=== PATIENT | male | born 1945 | race Caucasian/White ===

== ENCOUNTER 2017-05-06 08:00 | Outpatient (RCR) | payer MEDICARE, OTHER ==
[~2017-05-06 08:00] MED LIST: AMLODIPINE BESY10 MG PO; AMLODIPINE BESYL5 MG PO; Acetaminophen/Hydrocodone PO; CELEBREX100 MG PO; CRESTOR PO; CRESTOR10 MG PO; DOXAZOSIN MESYLA2 MG PO; LOSARTAN-HCTZ1 EAC2 PO; LOSARTAN/HCTZ PO; METOPROLOL TART50 MG PO; XARELTO10 MG PO; ZANTAC PO
== END 2017-05-25 ==
LOC: PT 08:00
PROVIDERS: ATTEND Specialist
DX: M25.511 Pain in right shoulder (principal); M54.2 Cervicalgia; M62.81 Muscle weakness (generalized)
CPT/HCPCS: 97010 ×2; 97110 ×4; 97162; G8984; G8985

== ENCOUNTER → 2017-10-21 | Outpatient (CLI) | payer MEDICARE, OTHER ==
--- NOTE | 2017-10-21 09:30 | Diagnostic Imaging Report ---
PROCEDURE:ABDOMINAL ULTRASOUND COMPARISON:CT abdomen and pelvis with contrast 07/23/2014. INDICATIONS:ABDOMINAL PAIN/RUQ FINDINGS: Liver: 15.6 cm in length in the right midclavicular line. Normal hepatic parenchymal echogenicity. No focal mass. Main portal vein: 0.8 cm in caliber. Hepatopedal flow. Gallbladder: Surgically removed. Common Bile Duct: 0.4 cm in caliber. No echogenic filling defect. Right kidney: 11.4 cm in length. No solid or cystic mass, echogenic calculi, or hydronephrosis. Normal renal cortical echogenicity. Left kidney: 11.6 cm in length. No solid or cystic mass, echogenic calculi, or hydronephrosis. Normal renal cortical echogenicity. Spleen: 11.9 cm in length. Uniform parenchymal echotexture. Pancreas: The visualized portions of the pancreas are normal. Inferior vena cava: Patent. Aorta: Non-aneurysmal. Ascites: None. CONCLUSION: Status post cholecystectomy. Otherwise unremarkable abdominal ultrasound. Dictated by: Jase Dailey M.D. on 10/21/2017 at 9:34 Electronically approved by: Jase Dailey M.D. on 10/21/2017 at 9:34
== END ==
LOC: US 08:23
PROVIDERS: ATTEND Family Medicine
DX: R10.9 Unspecified abdominal pain (principal)
CPT/HCPCS: 76700

== ENCOUNTER → 2017-11-04 | Day surgery (SDC) | payer MEDICARE, OTHER ==
[2017-11-01 11:47] LABS: BASOPHILS # (AUTO) 0.1 (0.0-0.1); BASOPHILS % 0.7 % (0.0-1.0); EOSINOPHILS # (AUTO) 0.2 (0.0-0.4); EOSINOPHILS % 2.6 % (0.0-6.0); HEMATOCRIT 41.2 % (38.2-49.6); HEMOGLOBIN 14.4 g/dL (14.0-18.0); LYMPHOCYTES % 13.7 % (18.0-39.1); MEAN CORPUSCULAR HEMOGLOBIN 31.7 pg (28-32); MEAN CORPUSCULAR VOLUME 90.7 fL (81-99); MONOCYTES # (AUTO) 0.6 (0.2-0.8); MONOCYTES % 8.3 % (4.4-11.3); NEUTROPHILS # (AUTO) 5.1 (2.1-6.9); NEUTROPHILS % 73.5 % (38.7-80.0); PLATELET COUNT 189 x10e3/uL (140-360); RED BLOOD COUNT 4.54 x10e6/uL (4.3-5.7); RED CELL DISTRIBUTION WIDTH 13.5 % (11.7-14.4)
[~2017-11-04] MED LIST changes: +FENTANYL CITRATE/PF 100MCG/2 ML INJ ONE; +FLECAINIDE ACET50 MG PO; +FUROSEMIDE20 MG PO; +HYOSCYAMINE SULFATE 0.5 MG/ML AMP ONE; +LOSARTAN POTAS100 MG PO; +MIDAZOLAM HCL 2 MG/2 ML VIAL ONE; +OMEPRAZOLE40 MG PO; +PROPOFOL IV EMULSION 10 MG/ML 50 ML VIAL ONE; +[UNRECOGNIZED DRUG - OTHER] PO
--- NOTE | 2017-11-04 16:35 | Operative Report ---
DATE OF PROCEDURE: November 04, 2017 REFERRING PHYSICIAN: Dr. Mack Peterson. PROCEDURE PERFORMED: Esophagogastroduodenoscopy with biopsies and a colonoscopy with polypectomy. INDICATIONS FOR ESOPHAGOGASTRODUODENOSCOPY: Dyspepsia. INDICATIONS FOR COLONOSCOPY: Colorectal cancer screening, personal history of colon polyps. MEDICATION: Patient was done under MAC. Please see anesthesiologist's note. PROCEDURE: With patient in the left lateral decubitus position, flexible fiberoptic Olympus gastroscope was introduced into the esophagus under direct visualization without any difficulty. There was some patchy erythema noted in distal esophagus. Minute tongues of velvety red mucosa were noted to extend proximally from the GE junction and biopsies were obtained to rule out Orellana's. The scope was then advanced with ease into the stomach and mucosa overlying the antrum and the body revealed some patchy erythema and mild to moderate edema and biopsies were obtained and sent to stain for H. pylori. Approximately 5 mm submucosal nodule was noted in the mid body greater curvature and that was biopsied. Pylorus appeared to be of normal contour and shape. Was intubated with ease and the scope was advanced all the way to the 2nd portion of the duodenum. The scope was then withdrawn slowly. Mucosa overlying the proximal 2nd portion and the duodenal bulb appeared to be within normal limits. The scope was then withdrawn back into the stomach and retroflexed and mucosa overlying the fundus and the cardia appeared to be within normal limits. The scope was then straightened out. The stomach was decompressed. Scope was subsequently withdrawn. Patient tolerated the procedure well. IMPRESSION: 1. Rule out Orellana's esophagus. 2. Gastritis biopsied. Biopsy sent to stain for H. pylori. 3. Approximately 5 mm submucosal nodule mid body greater curvature, biopsied. PLAN: Follow up histology. Continue omeprazole 40 mg 1 p.o. q.a.m. a.c. PROCEDURE: Patient was then turned around and after adequate lubrication of the anal canal a flexible fiberoptic Olympus colonoscope was inserted into the rectum with ease and advanced all the way to the cecum. It was then withdrawn slowly. Mucosa overlying the cecum appeared to be within normal limits. One polyp was snared and 1 polyp was hot biopsied from the ascending colon. The transverse appeared to be within normal limits. Two polyps were hot biopsied from the descending colon. The sigmoid and rectum appeared to be within normal limits. The scope was then retroflexed into the distal rectum and small internal hemorrhoids were noted, none of which was actively bleeding. The scope was then straightened out and it was subsequently withdrawn. Patient tolerated procedure well. IMPRESSION 1. Ascending colon polyps times 2, one snared and one hot biopsied. 2. Descending colon polyps times 2, hot biopsied. 3. Small internal hemorrhoids, none actively bleeding. PLAN: Follow up histology. Initiate high-fiber, low-fat diet. Initiate high-fiber supplement. The patient might benefit from a followup colonoscopy in 3 years. Job#: [id number] cc:MACK PETERSON MD
== END | disposition home or self-care (01) ==
LOC: OR 12:27
PROVIDERS: ATTEND Internal Medicine Gastroenterology
DX: Z12.11 Encounter for screening for malignant neoplasm of colon (principal); K63.5 Polyp of colon; K29.70 Gastritis, unspecified, without bleeding; K22.70 Barrett's esophagus without dysplasia; K31.89 Other diseases of stomach and duodenum; K64.8 Other hemorrhoids; G47.33 Obstructive sleep apnea (adult) (pediatric); I10 Essential (primary) hypertension; I45.10 Unspecified right bundle-branch block; I49.3 Ventricular premature depolarization; Z01.810 Encounter for preprocedural cardiovascular examination; Z01.812 Encounter for preprocedural laboratory examination; Z68.35 Body mass index [BMI] 35.0-35.9, adult; Z96.653 Presence of artificial knee joint, bilateral
CPT/HCPCS: 36415; 43239; 45384; 45385; 85025; 88305; 88312; 93005; J1980; J2250

== ENCOUNTER 2021-03-07 16:13 | Emergency (ER) | payer MEDICARE, OTHER ==
[~2021-03-07] VITALS: Ht 177.8 cm; Wt 105.7 kg
[~2021-03-07 16:13] MED LIST changes: -FENTANYL CITRATE/PF 100MCG/2 ML INJ ONE; -HYOSCYAMINE SULFATE 0.5 MG/ML AMP ONE; -MIDAZOLAM HCL 2 MG/2 ML VIAL ONE; -PROPOFOL IV EMULSION 10 MG/ML 50 ML VIAL ONE
[2021-03-07] MEDS ORDERED: TETANUS/DIPHTHERIA TOX ADULT 0.5 ML SYR IM ONE (16:45)
[2021-03-07 20:06] VITALS: BP 161/79
== END 2021-03-07 19:50 | disposition home or self-care (01) ==
LOC: ER 16:40
DX: S02.2XXA Fracture of nasal bones, initial encounter for closed fracture (principal); S00.83XA Contusion of other part of head, initial encounter; W18.39XA Other fall on same level, initial encounter; Y93.01 Activity, walking, marching and hiking; Y92.008 Other place in unspecified non-institutional (private) residence as the place of occurrence of the external cause; I10 Essential (primary) hypertension; E78.5 Hyperlipidemia, unspecified; I50.9 Heart failure, unspecified; I48.91 Unspecified atrial fibrillation; K21.9 Gastro-esophageal reflux disease without esophagitis
CPT/HCPCS: 70450; 70486; 72125; 90714; 99284

== ENCOUNTER 2022-09-08 15:27 | Inpatient (IN) | payer MEDICARE, OTHER ==
[~2022-09-08] VITALS: Ht 177.8 cm; Wt 104.8 kg
[2022-09-08 16:41] LABS: BASOPHILS # (AUTO) 0.1 (0.0-0.1); BASOPHILS % 1.4 % (0.0-1.0); EOSINOPHILS # (AUTO) 0.2 (0.0-0.4); EOSINOPHILS % 3.2 % (0.0-6.0); HEMATOCRIT 48.7 % (38.2-49.6); HEMOGLOBIN 16.2 g/dL (14.0-18.0); LYMPHOCYTES # (AUTO) 0.7 (1.0-3.2); MEAN CORPUSCULAR HEMOGLOBIN 32.3 pg (28-32); MEAN CORPUSCULAR HGB CONC 33.3 g/dL (31-35); MONOCYTES # (AUTO) 0.5 (0.2-0.8); NEUTROPHILS # (AUTO) 4.4 (2.1-6.9); NEUTROPHILS % 74.1 % (38.7-80.0); PLATELET COUNT 143 x10e3/uL (140-360); RED BLOOD COUNT 5.02 x10e6/uL (4.3-5.7); RED CELL DISTRIBUTION WIDTH 15.1 % (11.7-14.4)
[2022-09-08 16:46] LABS: INR 1.2; PROTHROMBIN TIME 15.7 seconds (11.9-14.5)
[2022-09-08 16:47] LABS: PARTIAL THROMBOPLASTIN TIME 33.4 seconds (23.8-35.5)
[2022-09-08 16:56] LABS: ALBUMIN 3.8 g/dL (3.5-5.0); ALBUMIN/GLOBULIN RATIO 1.2 (0.8-2.0); ANION GAP 15.8 mmol/L (8-16); CALCIUM 9.2 mg/dL (8.4-10.2); CREATININE, SERUM 1.38 mg/dL (0.72-1.25); POTASSIUM 3.8 mmol/L (3.5-5.1)
[2022-09-08 17:02] LABS: CREATINE KINASE MB 5.5 ng/mL (0-5.0)
[2022-09-08 17:17] LABS: MAGNESIUM 2.1 MG/DL (1.3-2.1)
[2022-09-08] MEDS ORDERED: SODIUM CHLORIDE FLUSH 10 ML SYR INJ PRN (17:30)
[2022-09-08] MEDS ORDERED: ONDANSETRON HCL INJ 2MG/ML 2ML 2 MG/ML VIAL IV PRN (17:30)
[2022-09-08] MEDS: FUROSEMIDE INJ 10 MG/ML 4 ML VIAL IV SCH (17:37)
[2022-09-08 18:36] LABS: CLARITY,URINE CLEAR (CLEAR); COLOR,URINE YELLOW (YELLOW); KETONES,URINE NEGATIVE (NEGATIVE); LEUKOCYTE ESTERASE ,URINE TRACE (NEGATIVE); NITRITE,URINE NEGATIVE (NEGATIVE); PROTEIN,URINE DIPSTICK NEGATIVE (NEGATIVE); URINE UROBILINOGEN 0.2 mg/dL (0.2 - 1)
[2022-09-08 18:45] VITALS: PULSE 67; RESP 18; O2SAT 97
[2022-09-08 18:51] LABS: CREATINE KINASE MB 4.7 ng/mL (0-5.0)
[2022-09-08 19:00] LABS: WBC,URINE (MAN) 0-5 /HPF (0-5)
[2022-09-08] MEDS: ATORVASTATIN 40 MG TAB PO SCH (21:00)
[2022-09-08 21:23] VITALS: BP 165/95; PULSE 58; RESP 18; TEMP 98.1; O2SAT 96
[2022-09-08 21:40] VITALS: BP 165/95; PULSE 58; RESP 18; TEMP 98.1; O2SAT 96
[2022-09-09] VITALS (14 sets, daily range): BP systolic 142–156; BP diastolic 74–89; PULSE 41–65; RESP 16–20; TEMP 97.3–98; O2SAT 96–98
[2022-09-09] MEDS ORDERED: POTASSIUM CHLO20 ME1 PO (01:35)
[2022-09-09] MEDS ORDERED: ATORVASTATIN CA10 MG PO (01:35)
[2022-09-09] MEDS ORDERED: HYDRALAZINE HCL25 MG PO (01:35)
[2022-09-09] MEDS ORDERED: METOPROLOL TAR100 MG PO (01:35)
[2022-09-09] MEDS ORDERED: ELIQUIS5 MG PO (01:35)
[2022-09-09] MEDS ORDERED: FUROSEMIDE40 MG PO (01:35)
[2022-09-09 04:58] LABS: BASOPHILS # (AUTO) 0.1 (0.0-0.1); EOSINOPHILS # (AUTO) 0.2 (0.0-0.4); EOSINOPHILS % 3.5 % (0.0-6.0); HEMATOCRIT 42.4 % (38.2-49.6); HEMOGLOBIN 14.3 g/dL (14.0-18.0); LYMPHOCYTES # (AUTO) 0.7 (1.0-3.2); LYMPHOCYTES % 12.5 % (18.0-39.1); MEAN CORPUSCULAR HEMOGLOBIN 31.9 pg (28-32); MEAN CORPUSCULAR HGB CONC 33.7 g/dL (31-35); MEAN CORPUSCULAR VOLUME 94.6 fL (81-99); MONOCYTES # (AUTO) 0.6 (0.2-0.8); MONOCYTES % 9.5 % (4.4-11.3); NEUTROPHILS # (AUTO) 4.2 (2.1-6.9); NEUTROPHILS % 73.2 % (38.7-80.0); PLATELET COUNT 141 x10e3/uL (140-360); RED BLOOD COUNT 4.48 x10e6/uL (4.3-5.7); RED CELL DISTRIBUTION WIDTH 14.6 % (11.7-14.4)
[2022-09-09] MEDS: FUROSEMIDE INJ 10 MG/ML 4 ML VIAL IV SCH ×2 (05:18→16:56)
[2022-09-09 05:21] LABS: ALBUMIN 3.2 g/dL (3.5-5.0); ALBUMIN/GLOBULIN RATIO 1.1 (0.8-2.0); ANION GAP 14.3 mmol/L (8-16); CALCIUM 8.8 mg/dL (8.4-10.2); CREATININE, SERUM 1.11 mg/dL (0.72-1.25); POTASSIUM 3.3 mmol/L (3.5-5.1)
[2022-09-09 05:48] LABS: CREATINE KINASE MB 4.3 ng/mL (0-5.0)
[2022-09-09] MEDS: POTASSIUM CHLORIDE 20 MEQ TAB CR PO SCH (09:11)
[2022-09-09] MEDS: APIXABAN 5 MG TABLET PO SCH ×2 (09:11→16:56)
[2022-09-09] MEDS: DOXAZOSIN MESYLATE 2 MG TAB PO SCH (09:11)
[2022-09-09] MEDS: LOSARTAN POTASSIUM 100 MG TAB PO SCH (09:12)
[2022-09-09] MEDS: METOPROLOL TARTRATE 50 MG TAB PO SCH ×2 (09:12→17:10)
[2022-09-09] MEDS ORDERED: METOPROLOL TART25 MG PO (16:50)
[2022-09-09] MEDS: ATORVASTATIN 40 MG TAB PO SCH (21:28)
[2022-09-10] VITALS (10 sets, daily range): BP systolic 141–167; BP diastolic 74–96; PULSE 50–99; RESP 16–20; TEMP 97.5–98; O2SAT 96–99
[2022-09-10] MEDS: FUROSEMIDE INJ 10 MG/ML 4 ML VIAL IV SCH ×2 (05:35→16:58)
[2022-09-10] MEDS: DOXAZOSIN MESYLATE 2 MG TAB PO SCH (08:42)
[2022-09-10] MEDS: APIXABAN 5 MG TABLET PO SCH ×2 (08:43→16:58)
[2022-09-10] MEDS: LOSARTAN POTASSIUM 100 MG TAB PO SCH (08:43)
[2022-09-10] MEDS: POTASSIUM CHLORIDE 20 MEQ TAB CR PO SCH (08:43)
[2022-09-10] MEDS ORDERED: METOPROLOL TARTRATE 25 MG TAB PO SCH (09:00)
[2022-09-10] MEDS ORDERED: POTASSIUM CHLORIDE 20 MEQ TAB CR PO ONE (10:00)
[2022-09-10] MEDS ORDERED: FUROSEMIDE INJ 10 MG/ML 4 ML VIAL IV ONE (10:00)
[2022-09-10] MEDS ORDERED: ONDANSETRON HCL 4 MG ORAL DISINTEGRATING TAB PO PRN (11:45)
[2022-09-10 14:57] LABS: ANION GAP 15.3 mmol/L (8-16); CALCIUM 9.1 mg/dL (8.4-10.2); CREATININE, SERUM 1.32 mg/dL (0.72-1.25); POTASSIUM 4.3 mmol/L (3.5-5.1)
[2022-09-10 15:15] LABS: CHOL/HDL RATIO 4.9 (3.9-4.7)
[2022-09-10 15:34] LABS: THYROID STIMULATING HORMONE 0.754 uIU/mL (0.350-4.940)
[2022-09-10] MEDS: ATORVASTATIN 40 MG TAB PO SCH (20:29)
[2022-09-11 00:48] VITALS: BP 149/92; PULSE 58; RESP 19; TEMP 97.4; O2SAT 99
[2022-09-11 02:40] VITALS: BP 149/92; PULSE 58; RESP 19; TEMP 97.4; O2SAT 99
[2022-09-11 04:53] VITALS: PULSE 56; RESP 16; TEMP 97.3; O2SAT 99
[2022-09-11] MEDS: FUROSEMIDE INJ 10 MG/ML 4 ML VIAL IV SCH (04:56)
[2022-09-11 06:43] LABS: ALBUMIN 3.6 g/dL (3.5-5.0); ANION GAP 14.5 mmol/L (8-16); CALCIUM 9.4 mg/dL (8.4-10.2); CREATININE, SERUM 1.1 mg/dL (0.72-1.25); MAGNESIUM 2.1 MG/DL (1.3-2.1); POTASSIUM 3.5 mmol/L (3.5-5.1)
[2022-09-11 08:25] VITALS: BP 140/84; PULSE 62; RESP 18; TEMP 97.8; O2SAT 96
[2022-09-11] MEDS: LOSARTAN POTASSIUM 100 MG TAB PO SCH (08:38)
[2022-09-11] MEDS: POTASSIUM CHLORIDE 20 MEQ TAB CR PO SCH (08:39)
[2022-09-11] MEDS: APIXABAN 5 MG TABLET PO SCH (08:39)
[2022-09-11] MEDS: DOXAZOSIN MESYLATE 2 MG TAB PO SCH (08:40)
[2022-09-11 08:54] VITALS: BP 140/84; PULSE 62; RESP 18; TEMP 97.8; O2SAT 96
[2022-09-11] MEDS ORDERED: METOPROLOL SUCCINATE 25 MG TAB XL PO SCH (09:00)
[2022-09-11] MEDS ORDERED: METOPROLOL TART25 MG PO (11:36)
[2022-09-11] MEDS ORDERED: LASIX80 MG PO (11:37)
== END 2022-09-11 12:00 | disposition home or self-care (01) | DRG 291 ==
LOC: ER 16:20 → ERHOLD 17:27 → MED/SURG 21:00
PROVIDERS: ADMIT Family Medicine; ATTEND Family Medicine
PROC: 5A09357 Assistance with Respiratory Ventilation, Less than 24 Consecutive Hours, Continuous Positive Airway Pressure (ICD-10-PCS; principal; 2022-09-11)
DX: I11.0 Hypertensive heart disease with heart failure (principal); I50.33 Acute on chronic diastolic (congestive) heart failure; N40.0 Benign prostatic hyperplasia without lower urinary tract symptoms; E66.01 Morbid (severe) obesity due to excess calories; Z68.33 Body mass index [BMI] 33.0-33.9, adult; I48.91 Unspecified atrial fibrillation; K21.9 Gastro-esophageal reflux disease without esophagitis; E78.5 Hyperlipidemia, unspecified; I45.10 Unspecified right bundle-branch block; R00.1 Bradycardia, unspecified; I25.10 Atherosclerotic heart disease of native coronary artery without angina pectoris; G47.30 Sleep apnea, unspecified; Z20.822 Contact with and (suspected) exposure to COVID-19; Z90.49 Acquired absence of other specified parts of digestive tract; Z96.653 Presence of artificial knee joint, bilateral
CPT/HCPCS: 0223U; 36415; 71045; 80048; 80053; 80061; 81001; 82550; 82553; 83735; 83880; 84443; 84484; 85025; 85610; 85730; 93005; 93306; 94799; 99284; J1940